=== PATIENT | female | born 1990 | race Caucasian/White ===

== ENCOUNTER → 2023-09-19 | Outpatient (CLI) | payer OTHER, SELFPAY ==
[2023-09-21 15:09] LABS: HPV APTIMA, High Risk Negative (Negative)
== END | disposition home or self-care (01) ==
PROVIDERS: Referring Provider Advanced Practice Midwife; Visit Provider Advanced Practice Midwife
DX: Z12.4 Encounter for screening for malignant neoplasm of cervix (principal)
CPT/HCPCS: 87624; 88175; G0145

== ENCOUNTER → 2024-01-23 | Outpatient (CLI) | payer OTHER, SELFPAY ==
[2024-01-27 08:18] LABS: Chlamydia By Nucleic Acid AMP Negative (Negative); Gonococcus By Nucleic Acid AMP Negative (Negative)
== END | disposition home or self-care (01) ==
LOC: LABSPEC 16:02
PROVIDERS: Referring Provider Obstetrics & Gynecology; Visit Provider Obstetrics & Gynecology
DX: O09.90 Supervision of high risk pregnancy, unspecified, unspecified trimester (principal); Z83.2 Family history of diseases of the blood and blood-forming organs and certain disorders involving the immune mechanism; Z3A.00 Weeks of gestation of pregnancy not specified
CPT/HCPCS: 87086; 87491; 87591

== ENCOUNTER → 2024-02-26 | Outpatient (CLI) | payer OTHER, SELFPAY ==
[2024-02-26 10:27] LABS: Absolute Lymphocyte Count 1.04 X10^3/uL (0.83-4.51); Absolute Neutrophil Count 5.1 X10^3/uL (2.0-7.7); Basophil# 0.03 X10^3/uL; Basophil% 0.5 % (0-1); Eosinophil# 0.06 X10^3/uL; Eosinophils% 0.9 % (0-5); Hematocrit 33.9 % (37-47); Hemoglobin 11.8 g/dL (12.0-15.0); Lymphocyte # 1.04 X10^3/ul (0.83-4.51); Lymphocyte % 15.7 % (19-41); Mean Corp Hgb Conc 34.8 g/dL (32-36); Mean Corpuscular Hgb 33.2 pg (27.0-32.0); Mean Corpuscular Volume 95.5 fL (81-99); Mean Platelet Vol. 9.7 fl (6.2-12.0); Monocyte# 0.33 X10^3/uL; NRBC Flagged by Analyzer 0 % (0-5); Neutrophil # 5.12 X10^3/uL (2.7-7.7); Neutrophil % 77.3 % (47-70); Platelet Count 236 K/mm3 (150-450); RBC Distribution Width CV 12.4 % (11.6-14.6); RBC Distribution Width SD 43.2 fl (35.1-43.9); Red Blood Count 3.55 M/mm3 (4.2-5.4); White Blood Count 6.6 K/mm3 (4.4-11.0)
[2024-02-26 11:19] LABS: HIV - WCH Non-Reactive (Nonreactive); Hepatitis B Surface Antigen Non-Reactive (Nonreactive); Hepatitis C Antibody Non-Reactive (Nonreactive); Rubella IgG Equiv (Nonreactive); Syphilis Antibodies Non-reactive
== END | disposition home or self-care (01) ==
LOC: BWCLAB 08:55
PROVIDERS: Obstetrics & Gynecology; Referring Provider Nurse Practitioner Women's Health; Visit Provider Nurse Practitioner Women's Health
DX: O09.90 Supervision of high risk pregnancy, unspecified, unspecified trimester (principal); Z83.2 Family history of diseases of the blood and blood-forming organs and certain disorders involving the immune mechanism; Z3A.00 Weeks of gestation of pregnancy not specified
CPT/HCPCS: 36415; 81240; 81241; 83021; 85025; 85660; 86703; 86762; 86780; 86803; 86850; 86900; 86901; 87340

== ENCOUNTER → 2024-06-11 | Outpatient (CLI) | payer OTHER, SELFPAY ==
[2024-06-11 15:46] LABS: Absolute Lymphocyte Count 1.53 X10^3/uL (0.83-4.51); Absolute Neutrophil Count 7.2 X10^3/uL (2.0-7.7); Basophil# 0.02 X10^3/uL; Basophil% 0.2 % (0-1); Eosinophil# 0.06 X10^3/uL; Eosinophils% 0.6 % (0-5); Hemoglobin 10.6 g/dL (12.0-15.0); Lymphocyte # 1.53 X10^3/ul (0.83-4.51); Lymphocyte % 16.2 % (19-41); Mean Corp Hgb Conc 34.2 g/dL (32-36); Mean Corpuscular Hgb 33.5 pg (27.0-32.0); Mean Corpuscular Volume 98.1 fL (81-99); Mean Platelet Vol. 9.4 fl (6.2-12.0); Monocyte# 0.47 X10^3/uL; NRBC Flagged by Analyzer 0 % (0-5); Neutrophil # 7.23 X10^3/uL (2.7-7.7); Neutrophil % 76.6 % (47-70); Platelet Count 276 K/mm3 (150-450); RBC Distribution Width CV 11.6 % (11.6-14.6); RBC Distribution Width SD 41.4 fl (35.1-43.9); Red Blood Count 3.16 M/mm3 (4.2-5.4); White Blood Count 9.4 K/mm3 (4.4-11.0)
[2024-06-11 15:55] LABS: Glucose Challenge Gest 1H 50g 103 mg/dL (70-140)
[2024-06-11 16:27] LABS: HIV - WCH Non-Reactive (Nonreactive); Syphilis Antibodies Non-reactive
== END | disposition home or self-care (01) ==
LOC: BWCLAB 15:12
PROVIDERS: Referring Provider Obstetrics & Gynecology; Visit Provider Obstetrics & Gynecology
DX: O09.92 Supervision of high risk pregnancy, unspecified, second trimester (principal); Z3A.00 Weeks of gestation of pregnancy not specified
CPT/HCPCS: 36415; 82950; 85025; 86703; 86780

== ENCOUNTER → 2024-07-08 | Outpatient (CLI) | payer OTHER, SELFPAY ==
--- NOTE | 2024-07-08 12:13 | US_ITS ---
EXAM: OB LIMITED WITH BIOMETRICS CLINICAL HISTORY: GROWTH. Reportedly, 32 weeks and 3 days with LISANDRA 08/30/2024 by previously established dates. COMPARISON: None TECHNIQUE: Grayscale and color doppler transabdominal pelvic ultrasound was performed with attention to the uterus and associated gestation. COMPARISON: None FINDINGS: A single intrauterine gestational is identified. Cardiac activity: Present, 137 bpm. position: Cephalic. Amniotic Fluid Volume: Subjectively low normal. Amniotic Fluid Index: 13.0 (normal 5-25), deepest vertical pocket 7.7 (normal 2-8). Placenta: Anterior. Nonspecific placental thickening to 5.6 cm. biometry: Biparietal diameter: 8.2 cm, corresponding to 32 weeks 5 days, 53rd percentile. Head circumference: 29.3 cm, corresponding to 32 weeks and 3 days, 14th percentile. Abdominal circumference: 30.0 cm, corresponding to 34 weeks and 0 days, 88th percentile. Femur length: 6.1 cm, corresponding to 31 weeks and 6 days, 22nd percentile. Composite gestational age: 32 weeks and 3 days Estimated Weight (EFW): 2,156 grams +/-323 grams, 66th percentile. Estimated delivery date (LISANDRA): 08/30/2024. US/OB Limited With Biometrics IMPRESSION: 1. Single live intrauterine . Estimated weight 2,156 grams +/-3 23 grams, 66th percentile based on provided previously established dates. 2. Placentomegaly is nonspecific. Correlate with clinical evaluation. 3. Additional description as above. Reading Location: [id number]
== END | disposition home or self-care (01) ==
PROVIDERS: Referring Provider Obstetrics & Gynecology; Visit Provider Obstetrics & Gynecology
DX: D68.52 Prothrombin gene mutation (principal); D68.51 Activated protein C resistance
CPT/HCPCS: 76816

== ENCOUNTER → 2024-08-06 | Outpatient (CLI) | payer OTHER, SELFPAY ==
--- NOTE | 2024-08-06 12:20 | US_ITS ---
PROCEDURE: OB LIMITED WITH BIOMETRICS 08/06/2024 REASON FOR EXAM: GROWTH TECHNIQUE: High resolution obstetric ultrasound performed using a 2D transducer. Standard views obtained, including biometry, anatomy survey, and Doppler studies. COMPARISON: Comparison is made with prior study dated July 08, 2024. FINDINGS Number: 1 Position: Vertex Placental Position: Posterior and not low-lying. Placental grade: 1 Placental Abnormalities: Thickened placenta. DIMENSIONS: Biparietal Diameter: 9.1 cm: 36 weeks 5 days: 66 percentile/ Head Circumference: 31.9 cm: 35 weeks and 6 days: 11 percentile/ Abdominal Circumference: 33.1 cm: 37 weeks 0 days: 74 percentile/ Femur Length: 7 cm: 35 weeks and 5 days: 25th percentile/ ESTIMATED WEIGHT: 3020 g plus/-453 g ESTIMATED WEIGHT PERCENTILE (24+ weeks): 59 ESTIMATED GESTATIONAL AGE: Baseline: 36 weeks 4 days By Ultrasound: 36 weeks ESTIMATED DATE OF DELIVERY: Baseline: August 30, 2024 By Ultrasound: September 03, 2024 BIOPHYSICAL ASSESSMENT: Amniotic Fluid Volume: 4.2 cm Amniotic Fluid Index: 11.4 (8-24 cm normal range) Cardiac Motion: 131 beats per minute (average) Trunk and Limb Motion: Present. MATERNAL ANATOMY: Adnexa: Neither maternal ovary is successfully identified. US/OB Limited With Biometrics IMPRESSION: Single live intrauterine gestation with a mean gestational age of 36 weeks. Th ere has been good interval growth. Reading Location: [place] [address]
== END | disposition home or self-care (01) ==
LOC: OPUS 12:19
PROVIDERS: Referring Provider Obstetrics & Gynecology; Visit Provider Obstetrics & Gynecology
DX: D68.51 Activated protein C resistance (principal); D68.52 Prothrombin gene mutation
CPT/HCPCS: 76816

== ENCOUNTER → 2024-08-06 | Outpatient (CLI) | payer OTHER, SELFPAY | END | disposition home or self-care (01) | LOC: LABSPEC 16:01 | PROVIDERS: Referring Provider Obstetrics & Gynecology; Visit Provider Obstetrics & Gynecology | DX: O09.93 Supervision of high risk pregnancy, unspecified, third trimester (principal); Z3A.00 Weeks of gestation of pregnancy not specified | CPT/HCPCS: 87081 ==

== ENCOUNTER 2024-08-23 19:14 | Inpatient (IN) | payer OTHER, SELFPAY ==
[2024-08-23 19:18] VITALS: BMI 31.4
[2024-08-23 19:38] VITALS: BP 130/79; PULSE 83; RESP 16; TEMP 36.6
[2024-08-23 19:48] LABS: Absolute Lymphocyte Count 1.52 X10^3/uL (0.83-4.51); Absolute Neutrophil Count 6.8 X10^3/uL (2.0-7.7); Basophil# 0.04 X10^3/uL; Basophil% 0.4 % (0-1); Eosinophil# 0.05 X10^3/uL; Eosinophils% 0.5 % (0-5); Hematocrit 29.4 % (37-47); Hemoglobin 10.3 g/dL (12.0-15.0); Lymphocyte # 1.52 X10^3/ul (0.83-4.51); Lymphocyte % 16.6 % (19-41); Mean Corpuscular Hgb 32.6 pg (27.0-32.0); Mean Platelet Vol. 10.4 fl (6.2-12.0); Monocyte# 0.68 X10^3/uL; Monocyte% 7.4 % (0-10); NRBC Flagged by Analyzer 0.2 % (0-5); Neutrophil # 6.76 X10^3/uL (2.7-7.7); Neutrophil % 73.7 % (47-70); Platelet Count 221 K/mm3 (150-450); RBC Distribution Width CV 13.2 % (11.6-14.6); RBC Distribution Width SD 44.6 fl (35.1-43.9); Red Blood Count 3.16 M/mm3 (4.2-5.4); White Blood Count 9.2 K/mm3 (4.4-11.0)
[2024-08-23] MEDS: miSOPROStol 25 MCG TABLET VAGINAL (20:12)
--- NOTE | 2024-08-23 20:34 | HP.PCM.OB_ITS ---
HPI - General General Date of Admission: 08/23/24 Date of Service: 08/23/24 HPI Narrative TORI MCKEON, is a 34 F 39.0 weeks who presents to the unit for induction of labor for factor V Maternal Data Information LISANDRA Calculator Estimated Delivery Date Method Current WG Current Estimate 08/30/24 LMP (Certain) 39w 0d Other Estimates 08/26/24 Ultrasound #1 39w 4d Final LISANDRA: 08/30/24 Final LISANDRA Source: US >20 weeks Gestational age: 39.0 PFSH PFS Medical History Prothrombin gene mutation Factor V Leiden mutation FH: breast cancer Seasonal allergies Asthma Home Medications ?Medication ?Instructions ?Recorded ?Last Taken ?Type multivit-min no.71-iron fum 28 cap PO 08/22/24 History mg-folate no.1 1 mg-dha 300 mg capsule (PNV-[place]) enoxaparin 40 mg/0.4 mL 40 mg (0.4 mL) subcut QDAY 1 06/02/23 08/22/24 Rx subcutaneous syringe (Lovenox) 30 days #12 m L ferrous sulfate 325 mg (65 mg 325 mg PO QDAY 06/24/24 08/22/24 History iron) tablet Allergy/AdvReac Type Severity Reaction Status Date / Time No Known Allergies Allergy Verified 08/23/24 19:29 Family History Grandmother Breast cancer Sister Bleeding disorder factor II and V Sister Bleeding disorder oldest sister, factor 5 and 2. Has had 5 pregnancies without complic ations. Surgical History [place] teeth extracted Social History adopted: No household members: spouse housing: house number of children: 0 current occupational status: employed current occupation: [employer] current occupational exposures/hazards: No pets and animals: No history of recent travel: Yes ([place]- [place], [place] & [place]) out of country: Yes sexually active: Yes Smoking Status: Never smoker second hand exposure: No alcohol intake: current alcohol intake frequency: holidays/special occasions only details: not while substance use type: does not use well-balanced diet: daily or most days caffeine: Yes Type: coffee Number of servings: 1 eating out: 1-3 times/week during the past year weight has: remained stable what type of physical activity do you participate in: running frequency: 1-2 times per week duration: 30-45 minutes/day tiff/amish: Catholic seatbelt use: always do you feel safe at home: Yes additional social history: - Herrera works @ [employer] History 1 Elective abortions Hx Para 0 Spontaneous abortions Hx # Term Pregnancies Ectopic pregnancies Hx # Pregnancies Multiple births # of living children Visit Details Expected Delivery Route/Plan Labor Preferences- CB/BF classes: yes labor support person: Herrera labor intervention preferences: pain management options preferred: limited. Epidural ok if needed cut cord/dad catch: maybe : yes PP control planned: discussed discussed possible routes of delivery and associated risks: [] special requests: [] Plans Covid status: [] Flu vaccine: declines Tdap vaccine: declined Rhogam: NA LARC form signed: yes Problem list reviewed and updated with the most current plan of care details and appropriate orders placed. Relevant counseling for the gestational age provided. Continue routine care and follow up unless otherwise noted in visit notes/problem list details OB Flowsheet Initial Weight: Not Recorded Date -?-?-?-?-?-?-?-?-?-?-?-?- EGA Weight BP Urine Prot -?-?-?-?-?-?-?-?-?-?-?-?- Glucose FHR FuHt Pres Dilation -?-?-?-?-?-?-?-?-?-?-?-?- Effaced St Visit Note 01/23/24 -?-?-?-?-?-?-?-?-?-?-?-?- 8w 4d 137 lb 124/75 -?-?-?-?-?-?-?-?-?-?-?-?- 160 -?-?-?-?-?-?-?-?-?-?-?-?- SM- CRL 2.3cm co ns with LMP 02/26/24 -?-?-?-?-?-?-?-?-?-?-?-?- 13w 3d 137 lb 2 oz 109/74 Nega tive -?-?-?-?-?-?-?-?-?-?-?-?- Negative 150 -?-?-?-?-?-?-?-?-?-?-?-?- MH-No VB since > 2 wk ago. Did go to ED near her home and US WNL. Nausea resolved. Br US confirm FHT 03/25/24 -?-?-?-?-?-?-?-?-?-?-?-?- 17w 3d 146 lb 115/66 -?-?-?-?-?-?-?-?-?-?-?-?- 140 -?-?-?-?-?-?-?-?-?-?-?-?- KW- no vb/crampi ng. possible flutters. Anatomy US on 04/09. Appt with heme next week. 04/24/24 -?-?-?-?-?-?-?-?-?-?-?-?- 21w 5d 153 lb 116/63 Negative -?-?-?-?-?-?-?-?-?-?-?-?- Negative 141 -?-?-?-?-?-?-?-?-?-?-?-?- JV- normal anato my scan. marginal insertion of umbilical cord. doing well on lovenox. 05/22/24 -?-?-?-?-?-?-?-?-?-?-?-?- 25w 5d 160 lb 4 oz 133/79 Nega tive -?-?-?-?--?-?-?-?-?-?-?-?- Negative 140 25 -?-?-?-?-?-?-?-?-?-?-?-?- SM- no vb lof go od fm no regular ctx 06/11/24 -?-?-?-?-?-?-?-?-?-?-?-?- 28w 4d 164 lb 8 oz 120/64 Nega tive -?-?-?-?-?-?-?-?-?-?-?-?- Negative 142 28 -?-?-?-?-?-?-?-?-?-?-?-?- MH-no VB, LOF. G ood FM. 28 wk labs pending. Larc done. Declines tdap 06/24/24 -?-?-?-?-?-?-?-?-?-?-?-?- 30w 3d 167 lb 4 oz 134/71 Trac e -?-?-?-?-?-?-?-?-?-?-?-?- Negative 140 30 -?-?-?-?--?-?-?-?-?-?-?-?- JV- no lof, vagi nal bleeding, or dec fm. no complaints. still taking lovenox as prescribed. has some hemorrhoids and constipation. discussed stool softeners and preparation H. Nsts starting next visit weekly. growth at 32 and 36 weeks deliver 39 weeks. 07/08/24 -?-?-?-?-?-?-?-?-?-?-?-?- 32w 3d 171 lb 8 oz 124/76 Nega tive -?-?-?-?-?-?--?-?-?-?-?-?- Negative 130 -?-?-?-?-?-?-?-?-?-?-?-?- JV- NST is react mara. no complaints today 07/15/24 -?-?-?-?-?-?-?-?-?-?-?-?- 33w 3d 175 lb 125/74 Negative -?-?-?-?-?-?-?-?-?-?-?-?- Negative 125 -?-?-?-?-?-?-?-?-?-?-?-?- KW- NST only. re active 07/24/24 -?-?-?-?-?-?-?-?-?--?-?-?- 34w 5d 177 lb 4 oz 117/77 Nega tive -?-?-?-?-?-?-?-?-?-?-?-?- Negative 130 34 -?-?-?-?-?-?-?-?-?-?-?-?- KW-no vb/lof/ctx . good fm. reactive NST. growth US scheduled for 2 weeks 07/31/24 -?-?-?-?-?-?-?-?-?-?-?-?- 35w 5d 178 lb 111/78 -?-?-?-?-?-?-?-?-?-?-?-?- 135 -?-?-?-?-?-?-?-?-?-?-?-?- KW- Reactive NST only 08/06/24 -?-?-?-?-?-?-?-?-?-?-?-?- 36w 4d 179 lb 8 oz 120/73 Nega tive -?-?-?-?-?-?-?-?-?-?-?-?- Negative 130 -?-?-?-?-?-?-?-?-?-?-?-?- SM- no vb lof go od fm no reulgar ctx 08/15/24 -?-?-?-?-?-?-?-?-?-?-?-?- 37w 6d 182 lb 2 oz 121/73 Nega tive -?-?-?-?-?-?-?-?-?-?-?-?- Negative 130 0 -?-?-?-?-?-?-?-?-?-?-?-?- 30 -3 LC- no ctx /lof/vb. nst reactive. LC- no ctx/lof/vb. nst react mara.IOL scheduled for next sunday. external os 2cm, internal os closed. cytotec recommended. hold lovenox 24 hours prior to iol. case reviewed with JV. 08/21/24 -?-?-?-?-?-?-?-?-?-?-?-?- 38w 5d 184 lb 129/76 Trace -?-?-?-?-?-?-?-?-?-?-?-?- Negative 130 -?-?-?-?-?-?-?-?-?-?-?-?- SM- IOL prothrom bin gene mutation cervix was closed plan cytotec NST FHR Rate Baby A Baseline: 125 Variability:: Moderate Accelerations:: 15 x 15 Decelerations:: None NST Reactive:: Yes FHR Category:: Category I Uterine Activity:: irregular ROS Constitutional Constitutional: Denies change in weight, fatigue, fever(s), headache(s), poor appetite or weakness Eyes Eyes: Denies blurry vision, change in vision, floaters, seeing flashes or spots in vision ENT HEENT: Denies dizziness, headache(s), loss taste/smell or sore throat Cardiovascular Cardiovascular: Denies chest pain, dizziness, dyspnea, irregular heart rhythm, lightheadedness, palpitations or rapid heart rate Respiratory/Chest Respiratory/Chest: Denies change in mental status, chest tightness, cough, dyspnea or breast pain Gastrointestinal Gastrointestinal: Denies anorexia, chewing difficulty, constipation, diarrhea or weight changes Genitourinary Genitourinary: Denies difficulty urinating, dysuria, flank pain, genital pain, urinary frequency or urinary urgency Musculoskeletal Musculoskeletal: Denies back pain, difficulty walking, extremity pain, joint pain, muscle cramps or muscle weakness Integumentary Integumentary: Denies lesions or unusual bruising Neurologic Neurologic: Denies abnormal movements, abnormal speech, dizziness, numbness, seizure-like activity, syncope or weakness Psychiatric Psychiatric: Denies behavioral changes, change in appetite, confusion, depression, homicidal ideation, suicidal ideation or suicidal thoughts Endocrine Endocrinology: Denies excessive sweating, polydipsia or polyuria Hematologic/Lymphatic Hematologic/Lymphatic: Denies anemia Allergic/Immunologic Allergic/Immunologic: Denies itchy eyes, lip swelling, throat swelling, tongue swelling or wheezing Vital Signs Vital Signs Vital Signs: 08/23/24 19:38 08/23/24 19:38 08/23/24 19:38 Temperature Temperature Source Temporal Pulse Rate 83 Respiratory Rate Blood Pressure 130/79 H BP Systolic 130 BP Diastolic 79 08/23/24 19:38 08/23/24 19:38 Temperature 97.8 F Temperature Source Pulse Rate Respiratory Rate 16 Blood Pressure BP Systolic BP Diastolic Weight Weight: 183 lb Body Mass Index (BMI) 31.4 Physical Exam Const alert, oriented x3 and no apparent distress General Appearance: cooperative Orientation / Consciousness: awake HEENT normocephalic Neck full ROM Lymph Lymphatic: no lymphadenopathy noted Chest inspection of chest normal Resp normal respiratory effort and normal air movement Effort and Inspection: able to speak in complete sentences and symmetric chest movement GI soft to palpation and non-tender Inspection: gravid Palpation: soft; Negative for tender external exam normal Back/Spine normal to inspection Extremity normal to inspection and full ROM Skin no rashes or lesions noted Psych mental status grossly normal Appearance: grossly normal Speech: normal speech Labs Labs Labs: Blood Type B POSITIVE Antibody Screen NEGATIVE Hct 29.4 % (37-47) L Hgb 10.3 g/dL (12.0-15.0) L Obstetrics Ultrasound Syphilis Total Ab Non-reactive Rubella IgG Antibody Equiv (Nonreactive) Hep Bs Antigen Non-Reactive (Nonreactive) Hepatitis C Antibody Non-Reactive (Nonreactive) Chlamydia DNA (DACIA) Negative (Negative) N.gonorrhoeae DNA (DACIA) Negative (Negative) HIV 1&2 Antibody Non-Reactive (Nonreactive) Glucose 1 Hr 50 gm 103 mg/dL (70-140) Assessment & Plan (1) Encounter for induction of labor: PLAN: Patient presents IOL, plan management for with pitocin/AROM. Pain management: plans epidural. GBS negative. Management of any complications: see list I have reviewed the [facility] and made any clinically relevant updates. Dr Salas aware of assessment plan and admission. agrees with above (2) Anemia affecting : COMMENT: OTC Fe daily (3) Marginal insertion of umbilical cord: (4) Prothrombin gene mutation: COMMENT: Heterozygous. Lovenox daily. weekly nst 32 on and growth US 32 and 36 weeks, recommend IOL 39. 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 FOB needs tested to see if concern for baby- done 03/25:negative (7) Rubella non-immune status, antepartum: COMMENT: MMR post delivery, avoid anyone with rubella. (8) Supervision of high-risk : QUALIFIERS: Trimester: third trimester Qualified Code(s): O09.93 - Supervision of high risk , unspecified, third trimester COMMENT: [id number], LISANDRA 08/30/24, Herrera. surprise Herrera Carrier screen neg. (9) : QUALIFIERS: Weeks of gestation: 38 weeks Qualified Code(s): Z3A.38 - 38 weeks gestation of COMMENT: Neg GBS. elects carrier testing, declines NIPT and AFP. nl anatomy Charges/Coding Multi Select Codes Urinary/Genital Urinary/Genital CPT Codes: No Charge
[2024-08-23 20:46] LABS: Syphilis Antibodies Nonreactive (Nonreactive)
[2024-08-24] VITALS (61 sets, daily range): BP systolic 91–141; BP diastolic 52–80; PULSE 63–152; RESP 16–18; TEMP 36.4–36.9; O2SAT 94–100
[2024-08-24] MEDS: LACTATED RINGERS 500 ML 999 ML IV ×2 (00:43→04:38)
[2024-08-24] MEDS: miSOPROStol 25 MCG TABLET VAGINAL (03:04)
[2024-08-24] MEDS: Lactated Ringers 1,000 ML 50 ML IV (06:21)
[2024-08-24] MEDS: Acetaminophen 500 MG Tablet PO (06:58)
--- NOTE | 2024-08-24 07:38 | PN_ITS ---
Progress Note Coping well with contractions current tracing: FHT: 120 Moderate variability reactive no decelerations category I tracing [place]: 1.5-2 minutes Contractions Membranes:intact SVE:4/80/-1 A/P: Continue with position changes Start pitocin per protocol Epidural per anesthesia GBS neg Anticipate Dr Salas aware of above assessment and agrees with plan of care Assessment & Plan Assessment/Plan (1) Encounter for induction of labor: (2) Anemia affecting : (3) Marginal insertion of umbilical cord: (4) Prothrombin gene mutation: (5) Factor V Leiden mutation: (6) Genetic carrier: (7) Rubella non-immune status, antepartum: (8) Supervision of high-risk : QUALIFIERS: Trimester: third trimester Qualified Code(s): O09.93 - Supervision of high risk , unspecified, third trimester (9) : QUALIFIERS: Weeks of gestation: 38 weeks Qualified Code(s): Z3A.38 - 38 weeks gestation of Multi Select Codes Urinary/Genital Urinary/Genital CPT Codes: No Charge
[2024-08-24] MEDS: 0.9% Saline Lock 10 ML Syringe IV (07:52)
[2024-08-24] MEDS: Ondansetron 4 MG/2 ML Vial IV (07:52)
[2024-08-24] MEDS: fentaNYL-bupivacaine (epidural) 100 ML BAG EPIDURAL (09:10)
[2024-08-24] MEDS: Lactated Ringers 1,000 ML 200 ML IV ×2 (09:12→14:39)
--- NOTE | 2024-08-24 09:37 | PN_ITS ---
Progress Note comfortable with epidural current tracing: FHT: 120 Moderate variability reactive no decelerations category I tracing [place]: 2 minute Contractions Membranes: AROM clear SVE:5.5/90/-1 A/P: Continue with position changes Titrate pitocin per protocol Epidural per anesthesia GBS neg Anticipate Dr Salas aware of above assessment and agrees with plan of care Assessment & Plan Assessment/Plan (1) Encounter for induction of labor: (2) Anemia affecting : (3) Marginal insertion of umbilical cord: (4) Prothrombin gene mutation: (5) Factor V Leiden mutation: (6) Genetic carrier: (7) Rubella non-immune status, antepartum: (8) Supervision of high-risk : QUALIFIERS: Trimester: third trimester Qualified Code(s): O09.93 - Supervision of high risk , unspecified, third trimester (9) : QUALIFIERS: Weeks of gestation: 38 weeks Qualified Code(s): Z3 A.38 - 38 weeks gestation of Multi Select Codes Urinary/Genital Urinary/Genital CPT Codes: No Charge
[2024-08-24] MEDS: Oxytocin 15 Units/NS 250ml 15 UNITS/250 ML IV.SOLN 334 UNITS IV (16:06)
[2024-08-24] MEDS: Oxytocin 10 UNITS/ML Vial IM (16:08)
--- NOTE | 2024-08-24 16:21 | EX.PCM.OBVAG ---
Assessment & Plan (1) Vaginal delivery: COMMENT: KW IOL girl 3rd degree (2) Third degree perineal laceration: (3) Encounter for induction of labor: (4) Anemia affecting : COMMENT: OTC Fe daily (5) Marginal insertion of umbilical cord: (6) Prothrombin gene mutation: COMMENT: Heterozygous. Lovenox daily. weekly nst 32 on and growth US 32 and 36 weeks, recommend IOL 39. 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 FOB needs tested to see if concern for baby-done 03/25:negative (9) Rubella non-immune status, antepartum: COMMENT: MMR post delivery, avoid anyone with rubella. (10) Supervision of high-risk : QUALIFIERS: Trimester: third trimester Qualified Code(s): O09.93 - Supervision of high risk , unspecified, third trimester COMMENT: [id number], LISANDRA 08/30/24, Herrera. surprise Herrera Carrier screen neg. (11) : QUALIFIERS: Weeks of gestation: 38 weeks Qualified Code(s): Z3A.38 - 38 weeks gestation of COMMENT: Neg GBS. elects carrier testing, declines NIPT and AFP. nl anatomy Maternal Data Information LISANDRA Calculator Estimated Delivery Date Method Current WG Current Estimate 08/30/24 LMP (Certain) 39w 1d Other Estimates 08/26/24 Ultrasound #1 39w 5d Final LISANDRA: 08/30/24 Final LISANDAR Source: US >20 weeks Gestational age: 39.1 Vaginal Delivery Maternal Presentation Maternal Presentation: Presented to unit for induction of labor for clotting disorder. Type of Induction: Cytotec Medical Reason for Induction: Compromise: list: (see list) Vaginal Delivery Information Procedure Performed: Spontaneous Vaginal Delivery Surgeon/Practitioner: Yari Jorge Date of Procedure: 08/24/24 Pre-Procedure Diagnosis: see problem list Post-Procedure Diagnosis: same Type of anesthesia: Epidural Estimated Blood Loss: 400 Time of Delivery: 16:01 Findings Description of procedure: Progressed well to 10cm dilated and made steady progress with effective maternal pushing. Delivered the head in JAI presentation. The head was delivered atraumatically and no nuchal cord was identified. The anterior and posterior shoulders delivered without complication followed by the rest of the infant and the infant was placed on the maternal abdomen. Delayed cord clamping was employed for approximately 3 minutes. Cord was clamped and cut and gentle traction was applied to the cord and the placenta delivered spontaneously. Immediately following, it was noted to be intact with a 3 vessel cord. Uterine bleeding stable. The perineum and vagina were inspected and noted to have a third degree laceration. Dr Salas was called to bedside for repair of laceration. See her note. EBL was 400. Patient and tolerated delivery well. Apgars 8/9. Dr Salas notified of vaginal delivery and orders reviewed. Physician agrees with current plan of care. Presentation: Vertex Amniotic Membrane Rupture Type: Artificial Amniotic Fluid Description: Clear Placental Delivery Description: Spontaneous Placenta Disposition: [facility] Specimen collected: No Cord Vessel Description: 3 Vessels Cord Entanglement: None A Gender: Female (1 minute): 8 (5 minute): 9 Delayed Cord Clamping: Yes [employer] Supervisor staff nurse: No Post Vaginal Deli Medications given after delivery: IV Pitocin and IM Pitocin Episiotomy Description: None Laceration: 2nd degree Complication Complications: No Multi Select Codes Urinary/Genital Urinary/Genital CPT Codes: 63586 Vaginal Delivery [facility]
--- NOTE | 2024-08-24 16:26 | DCINST_ITS ---
Discharge Instructions Diet Discharge Diet: No restrictions DC O2, CPAP, BIPAP needs Home O2 Discharge instructions: No Dressing / Incision Discharge Activity: Return to Normal Activity May resume sexual activity in: 6-8 weeks Dressing / Incision Call your doctor if you observe: Fever of 101 or Higher, Coldness, Increased Pain, Numbness or Tingling, Change in Color, Inability to urinate, Inability to have a bowel movement, Using more than 1 pad per hour, Shortness of breath, Dizziness, Fainting spells, Swelling in the ankles, Chest pain, Increased p alpitations (irregular heartbeat), Calf discomfort and Uncontrolled pain Follow Up Care Please Follow Up With: Yari Jorge CNM When: Please call the office to schedule your follow up appointment in 6 weeks. If you had high blood pressure please call to schedule an appointment in 2 weeks. Test Results: Test results from this visit will be discussed in further detail at your follow- up appointment, if applicable. Discharge Plan Admission Admit Date/Time: 08/23/24 19:14 Attending Provider: Yari Jorge Primary Care Provider: Care Physician,Komal Primary Discharge Orders/Prescriptions Prescriptions: No Action PNV-Fouke 28-1-300 mg capsule PO ferrous sulfate 325 mg (65 mg iron) tablet 325 mg PO QDAY enoxaparin [Lovenox] 40 mg/0.4 mL syringe 40 mg subcut QDAY 30 Days Qty: 12 12RF Referrals / Follow Up: Care Physician,Komal Primary [Primary Care Provider] -
--- NOTE | 2024-08-24 16:50 | OP.PCM_ITS ---
Procedures Urinary/Genital [id number]: [id number] Episiotomy or vaginal repair(non-delivery) Operative Report (Standard) Operative Information Date of Procedure: 08/24/24 Pre-Operative Diagnosis: third degree laceration Post-Operative Diagnosis: same Surgery/Procedure Performed: third degree laceration repair channel marketing coordinator: No Type of Anesthesia: Epidural Procedure Start Time: 16:15 Procedure Stop Time: 16:45 Select all DRAINS/GRAFTS/IMPLANTS that apply: None Estimated Blood Loss: 150, 450t Specimen collected: No Description of surgery: arrived and patient had a partial third degree lacration with disrupted capsule but mostly intact sphinceter. the area was prepped with betadine and repaired with 2-0 vicryl interrupted suture to reinforce the defect in the capsule and then the laceration closed with 3-0 rapide. a supraclitoral laceration was also repaired with 3-0 rapide. Surgical Findings: 3rd degree laceration and supraclitoral laceration Complications Complications: No
[2024-08-24] MEDS: Cefazolin 2 GM in 0.9% Normal Saline (100mL Bag) 100 ML IV (17:11)
[2024-08-24] MEDS: Dibucaine 30 GM Tube 1 APPLIC TOPICAL (17:26)
[2024-08-24] MEDS: Hydrocortisone 2.5% Crm 1 APPLIC TOPICAL (17:26)
[2024-08-24] MEDS: Benzocaine/Lanolin/Aloe Vera 85 GM Spray 1 SPRAY TOPICAL (17:26)
[2024-08-24] MEDS: Ketorolac 30 MG/ML Syringe IV (17:27)
--- NOTE | 2024-08-24 19:04 | NURSING ---
removed by Monserrat Jorge CNM during delivery
[2024-08-24] MEDS: Ketorolac 10 MG Tablet PO (23:25)
[2024-08-25] VITALS (8 sets, daily range): BP systolic 107–131; BP diastolic 56–78; PULSE 82–96; RESP 16–17; TEMP 36.6–36.9; O2SAT 95–96
[2024-08-25] MEDS: Enoxaparin 40 MG/0.4 ML Syringe SC (04:05)
[2024-08-25] MEDS: Acetaminophen 500 MG Tablet 1000 MG PO (04:13)
[2024-08-25] MEDS: Ketorolac 10 MG Tablet PO (06:10)
[2024-08-25 06:33] LABS: Absolute Lymphocyte Count 1.68 X10^3/uL (0.83-4.51); Absolute Neutrophil Count 10.2 X10^3/uL (2.0-7.7); Basophil# 0.02 X10^3/uL; Basophil% 0.2 % (0-1); Eosinophil# 0.06 X10^3/uL; Eosinophils% 0.5 % (0-5); Hematocrit 23.9 % (37-47); Hemoglobin 8.4 g/dL (12.0-15.0); Lymphocyte # 1.68 X10^3/ul (0.83-4.51); Mean Corp Hgb Conc 35.1 g/dL (32-36); Mean Corpuscular Hgb 32.9 pg (27.0-32.0); Mean Corpuscular Volume 93.7 fL (81-99); Monocyte# 0.75 X10^3/uL; Monocyte% 5.8 % (0-10); NRBC Flagged by Analyzer 0 % (0-5); Neutrophil # 10.24 X10^3/uL (2.7-7.7); Neutrophil % 79.2 % (47-70); Platelet Count 168 K/mm3 (150-450); RBC Distribution Width CV 13.4 % (11.6-14.6); RBC Distribution Width SD 46.1 fl (35.1-43.9); Red Blood Count 2.55 M/mm3 (4.2-5.4); White Blood Count 12.9 K/mm3 (4.4-11.0)
--- NOTE | 2024-08-25 08:09 | PN.OBGYN_ITS ---
Subjective Subjective Patient doing well without complaints. Tolerating PO. Ambulating and voiding without difficulty. Feeding well. Denies chest pain, shortness of breath, calf pain/swelling, fevers, chills, lightheadedness. She states that if able, she would like to be discharged at 24 hrs. Objective Data Objective Data Vital Signs: Vital Signs Temp Pulse Resp BP Pulse Ox O2 Del Method 98 F 93 16 117/67 96 Room Air 08/25/24 04:02 08/25/24 04:02 08/25/24 04:02 08/25/24 04:02 08/25/24 04:02 08/25/24 04:02 Oxygen Delivery Method Room Air Weight: 183 lb Body Mass Index (BMI) 31.4 Intake & Output: Intake and Output for Last 24 Hours 08/23/24 08/24/24 08/25/24 23:59 23:59 23:59 Intake Total 3633.33 / 3633.33 Output Total 650 / 650 100 / 100 Balance 2983.33 / 2983.33 -100 / -100 Lab / Micro Data 08/25/24 06:15 Labs: Laboratory Results - last 24 hr 08/25/24 06:15: WBC 12.9 H, RBC 2.55 L, Hgb 8.4 L, Hct 23.9 L, MCV 93.7, MCH 32.9 H, MCHC 35.1, RDW Std Deviation 46.1 H, RDW Coeff of Adam 13.4, Plt Count 168, MPV 10.0, Immature Gran % (Auto) 1.300 H, Neut % (Auto) 79.2 H, Lymph % (Auto) 13.0 L, [place] % (Auto) 5.8, Eos % (Auto) 0.5, Baso % (Auto) 0.2, Absolute Neuts (auto) 10.2 H, Absolute Lymphs (auto) 1.68, Nucleated RBC % 0 ROS Constitutional Constitutional: Denies chills, fatigue, fever(s), poor appetite or weakness Eyes Eyes: Denies blurry vision, change in vision, seeing flashes or spots in vision ENT HEENT: Denies dizziness, headache(s), loss taste/smell or sore throat Cardiovascular Cardiovascular: Denies chest pain, dizziness, dyspnea, irregular heart rhythm, palpitations or rapid heart rate Respiratory/Chest Respiratory/Chest: Denies chest tightness, cough, dyspnea or breast pain Gastrointestinal Gastrointestinal: Denies abdominal pain, constipation or vomiting Genitourinary Genitourinary: Denies dysuria or flank pain Musculoskeletal Musculoskeletal: Denies difficulty walking, joint pain, limited range of motion or numbness Neurologic Neurologic: Denies abnormal movements, abnormal speech, dizziness, numbness, seizure-like activity or syncope Psychiatric Psychiatric: Denies anxiety, behavioral changes, change in appetite, confusion, depression or suicidal thoughts Physical Exam Const alert, oriented x3 and no apparent distress General Appearance: cooperative and comfortable Resp normal respiratory effort Cardio regular rate GI normal to inspection, nondistended, normoactive bowel sounds GI Narrative: uterus is firm below umbilicus Palpation: soft Back/Spine no CVA tenderness and thoraco-lumbar ROM normal Extremity normal to inspection, no clubbing, cyanosis or edema, no calf tenderness and no pedal edema Psych mental status grossly normal, thought process normal, cooperative, affect normal, speech normal, activity/motor behavior normal, denies homicidal ideation and denies suicidal ideation Assessment & Plan (1) Third degree perineal laceration: (2) Vaginal delivery: COMMENT: KW IOL girl 3rd degree (3) Encounter for induction of labor: (4) Anemia affecting : COMMENT: OTC Fe daily (5) Marginal insertion of umbilical cord: (6) Prothrombin gene mutation: COMMENT: Heterozygous. Lovenox daily. weekly nst 32 on and growth US 32 and 36 weeks, recommend IOL 39. 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 FOB needs tested to see if concern for baby- done 03/25:negative (9) Rubella non-immune status, antepartum: COMMENT: MMR post delivery, avoid anyone with rubella. (10) Supervision of high-risk : QUALIFIERS: Trimester: third trimester Qualified Code(s): O09.93 - Supervision of high risk , unspecified, third trimester COMMENT: [id number], LISANDRA 08/30/24, Herrera. surprise Herrera Carrier screen neg. (11) : QUALIFIERS: Weeks of gestation: 38 weeks Qualified Code(s): Z 3A.38 - 38 weeks gestation of COMMENT: Neg GBS. elects carrier testing, declines NIPT and AFP. nl anatomy PLAN: Plan s/p PPD # 1. routine post delivery care 2. breast feeding- support given 3. rh positive 4. rubella non-immune -vaccinate if patient willing 5. lovenox for factor V x 6 weeks
== END 2024-08-25 17:45 | disposition home or self-care (01) | DRG 768 ==
PROVIDERS: Admitting Provider Advanced Practice Midwife; Referring Provider Advanced Practice Midwife; Visit Provider Advanced Practice Midwife
DX: O99.12 Other diseases of the blood and blood-forming organs and certain disorders involving the immune mechanism complicating childbirth (principal); Z37.0 Single live birth; D68.51 Activated protein C resistance; O99.02 Anemia complicating childbirth; O43.193 Other malformation of placenta, third trimester; O70.20 Third degree perineal laceration during delivery, unspecified; Z14.8 Genetic carrier of other disease; Z3A.39 39 weeks gestation of pregnancy; Z79.01 Long term (current) use of anticoagulants
CPT/HCPCS: 59025; 59050; 85025; 86780; 86850; 86900; 86901; 99221; A4216; G0378; J2405